=== PATIENT | male | born 1945 | race Two or more races ===

== ENCOUNTER 2018-10-21 09:32 | Emergency (ER) | payer SELFPAY ==
[~2018-10-21] VITALS: Ht 162.6 cm; Wt 80.5 kg
--- NOTE | 2018-10-21 09:36 | NUR ---
LINCOLN IS TRANSLATING.
--- NOTE | 2018-10-21 10:03 | NUR ---
pt to 26 from lobby
--- NOTE | 2018-10-21 10:16 | NUR ---
Assumed care of patient. C/O right shoulder pain radiating fron anterior to posterior side. C/O intermittent pain and numbness and tingling on RUE. MD at bedside. Will continue to monitor.
[2018-10-21] MEDS ORDERED: KETOROLAC 30 MG/1 ML ONE (10:24)
[2018-10-21] MEDS ORDERED: KETOROLAC 30 MG/1 ML IM ONE (10:30)
[2018-10-21 11:00] LABS: ALBUMIN 3.5 g/dL (3.4-5.0); CALCIUM 8.3 mg/dL (8.5-10.1); CHLORIDE 107 mmol/L (98-107); CREATININE 0.83 mg/dL (0.7-1.3)
[2018-10-21] MEDS ORDERED: LOSARTAN 50MG TABLET PO ONE (11:00)
[2018-10-21 11:03] LABS: BASOPHILS # (AUTO) 0.04 x10^3/uL (0-0.1); BASOPHILS % (AUTO) 1 % (0-1); EOSINOPHILS # (AUTO) 0.24 x10^3/uL (0-0.4); EOSINOPHILS % (AUTO) 5 % (1-7); LYMPHOCYTES # (AUTO) 1.39 x10^3/uL (1-3.4); LYMPHOCYTES % (AUTO) 27 % (22-44); MD NO; MEAN CORPUSCULAR HEMOGLOBIN 32.5 pg (27.5-34.5); MEAN CORPUSCULAR HGB CONC 33.5 g/dL (33.2-36.2); MEAN CORPUSCULAR VOLUME 97.1 fL (81-97); MEAN PLATELET VOLUME 8.9 fL (7.4-10.4); MONOCYTES % (AUTO) 12 % (2-9); NEUTROPHILS # (AUTO) 2.89 x10^3/uL (1.8-6.8); NEUTROPHILS % (AUTO) 56 % (42-75); PLATELET COUNT 228 x10^3/uL (130-400); RED BLOOD COUNT 4.58 x10^6/uL (4.38-5.82)
[2018-10-21 11:08] LABS: ANION GAP 5 mmol/L (5-15)
--- NOTE | 2018-10-21 11:11 | NUR ---
Patient resting comfortably. No needs. Keely requested from pharmacy.
[2018-10-21 12:16] VITALS: BP 158/65
--- NOTE | 2018-10-21 12:17 | NUR ---
Patient/Caregiver given discharge instructions and they have confirmed that they understand the instructions. Patient ambulatory with steady gait.
== END 2018-10-21 12:19 | disposition home or self-care (01) ==
LOC: ED 11:48
DX: M54.12 Radiculopathy, cervical region (principal); I10 Essential (primary) hypertension; Z87.891 Personal history of nicotine dependence
CPT/HCPCS: 36415; 72050; 73030; 80048; 82040; 85025; 96372; 99284; J1885; J7512